=== PATIENT | female | born 1985 | race Caucasian/White ===

== ENCOUNTER 2016-11-13 13:05 | Emergency (ER) | payer OTHER | END 2016-11-13 15:13 | disposition home or self-care (01) | LOC: ER 13:05 | DX: J32.9 Chronic sinusitis, unspecified (principal); J45.909 Unspecified asthma, uncomplicated; Z88.8 Allergy status to other drugs, medicaments and biological substances | CPT/HCPCS: 71020; 93005; 99284 ==